=== PATIENT | female | born 1995 | race Two or more races ===

== ENCOUNTER 2022-04-15 23:05 | Observation (INO) | payer MEDICAID ==
[~2022-04-15] VITALS: Ht 162.6 cm; Wt 64.4 kg
== END 2022-04-16 02:46 | disposition left against medical advice (07) ==
LOC: LDRP 23:05
PROVIDERS: ADMIT Obstetrics & Gynecology; ATTEND Obstetrics & Gynecology
DX: O46.93 Antepartum hemorrhage, unspecified, third trimester (principal); O42.92 Full-term premature rupture of membranes, unspecified as to length of time between rupture and onset of labor; Z3A.37 37 weeks gestation of pregnancy
CPT/HCPCS: 59025; 76815; 81002; 84112; G0378; Q0114

== ENCOUNTER 2023-09-06 11:52 | Emergency (ER) | payer OTHER, MEDICAID ==
[~2023-09-06] VITALS: Ht 152.4 cm; Wt 54.1 kg
[2023-09-06 13:19] VITALS: BP 107/74; PULSE 73; RESP 16; TEMP 98; O2SAT 100
[2023-09-06] MEDS ORDERED: PRED20TA2 PO (14:16)
[2023-09-06] MEDS ORDERED: NABU-72 PO (14:16)
== END 2023-09-06 14:40 | disposition home or self-care (01) ==
LOC: ER 11:52
DX: M54.59 Other low back pain (principal); M25.551 Pain in right hip; Z79.899 Other long term (current) drug therapy; W10.8XXA Fall (on) (from) other stairs and steps, initial encounter; Y93.89 Activity, other specified; Y92.89 Other specified places as the place of occurrence of the external cause; Y99.8 Other external cause status
CPT/HCPCS: 72100; 73502